=== PATIENT | male | born 1990 | race Asian ===

== ENCOUNTER 2022-06-16 07:05 | Outpatient (CLI) | payer OTHER ==
--- NOTE | 2022-06-16 13:45 | MRI Report ---
PROCEDURE: LUMBAR SPINE WO INDICATIONS: LOW BACK PAIN TECHNIQUE: Noncontrast sagittal T1 spin echo and T2 fast echo, sagittal STIR, axial T1 and T2 fast spin echo thr ough the lumbar spine. In cases with scoliosis, additional coronal T2 fast spin echo may be performe d. COMPARISON: None. FINDINGS: Image quality: Excellent. Alignment and Curvature: There is normal bony alignment. Bone Marrow: Marrow is of normal overall signal. No acute vertebral body compression fractures. Spinal Cord: Conus medullaris terminates at the L1-L2 level. Visualized cord demonstrates normal si gnal and size. Paraspinous Soft Tissues: No paravertebral masses. T12-L1: Normal in appearance. L1-L2: Mild disc bulge. No canal stenosis or foraminal stenosis. L2-L3: Mild disc bulge. No canal stenosis or foraminal stenosis. L3-L4: Normal in appearance. L4-L5: Mild facet hypertrophy. No canal stenosis or foraminal stenosis. L5-S1: Mild facet hypertrophy. No canal stenosis or foraminal stenosis. IMPRESSION: 1. No canal stenosis or foraminal stenosis. 2. Mild lower lumbar facet arthropathy. Reviewed by: Matty Nash MD on 06/16/2022 9:15 AM PDT Approved by: Matty Nash MD on 06/16/2022 9:15 AM PDT Station ID: [id number]
== END 2022-06-16 07:06 | disposition home or self-care (01) ==
LOC: DI 07:05
DX: M47.816 Spondylosis without myelopathy or radiculopathy, lumbar region (principal); M51.36 Other intervertebral disc degeneration, lumbar region; M47.817 Spondylosis without myelopathy or radiculopathy, lumbosacral region

== ENCOUNTER 2023-05-12 06:48 | Emergency (ER) | payer OTHER ==
--- NOTE | 2023-05-12 07:34 | ED Physician Documentation ---
PD HPI ABD PAIN - Stated complaint Stated Complaint: N/D/V/ABD PX/DEHYDRATION - Chief complaint Chief Complaint: Abd Pain - History obtained from History obtained from: Patient - Additional information Additional information: The patient comes to the emergency department chief complaint of abdominal pain, nausea, and watery diarrhea for the past 3 days. He states that it started after he ate some leftovers at his house. He states he is the only one who ate the leftovers and nobody he knows of is sick that he has been exposed to. He states the pain is sharp and episodic and periumbilical. He denies any vomiting though he has been nauseated. He has tried to eat a couple times but states it causes a sharp pain in his mid abdomen. He states he still burping up the taste of the food that he ate when this whole thing started. He states he has had watery diarrhea multiple times sometimes green or yellow-tinged. He states he has felt febrile, though he has not measured. No respiratory symptoms. He is otherwise fairly healthy except for some orthopedic issues. No new medications. He states he is not urinating much now and he feels dizzy when he stands up. No other complaints at this time. PD PAST MEDICAL HISTORY - Past Medical History Past Medical History: No Cardiovascular: None Respiratory: None Neuro: None Endocrine/Autoimmune: None GI: None : None HEENT: None Psych: None Musculoskeletal: None Derm: None - Past Surgical History Past Surgical History: No - Present Medications Home Medications: Ambulatory Orders Medication Instructions Recorded Confirmed Ondansetron Odt [Zofran] 4 mg TL Q6H PRN #10 tablet 05/12/23 - Allergies Allergies/Adverse Reactions: Allergies Allergy/AdvReac Type Severity Reaction Status Date / Time aspirin AdvReac Hives Verified 05/12/23 07:00 - Social History Does the pt smoke?: No Smoking Status: Never smoker Does the pt drink ETOH?: Yes Does the pt have substance abuse?: No - Immunizations Immunizations are current?: Yes PD ED PE NORMAL - Vitals Vital signs reviewed: Yes - General General: Alert and oriented X 3, No acute distress, Well developed/nourished - HEENT HEENT: Atraumatic, PERRL, EOMI, Moist mucous membranes - Neck Neck: Supple, no meningeal sign - Cardiac Cardiac: RRR, No murmur - Respiratory Respiratory: No respiratory distress, Clear bilaterally - Abdomen Abdomen: Soft, Non distended, Other (Mild tenderness over periumbilical area and very focally in the medial left upper quadrant. No rebound or guarding. No other tenderness.) - Derm Derm: Normal color, Warm and dry, No rash - Extremities Extremities: No deformity - Neuro Neuro: Alert and oriented X 3, Other (Grossly intact) - Psych Psych: Normal mood, Normal affect Results - Vitals Vitals: Vital Signs - 24 hr 05/12/23 05/12/23 06:56 07:15 Temperature 37.0 C Heart Rate 100 96 Respiratory 18 20 Rate Blood Pressure 122/86 H 116/83 H O2 Saturation 98 97 Oxygen O2 Source Room air - Labs Labs: Laboratory Tests 05/12/23 05/12/23 07:14 07:14 WBC 8.4 RBC 4.96 Hgb 16.0 Hct 48.1 MCV 97.0 H MCH 32.3 H MCHC 33.3 RDW 11.2 L Plt Count 206 MPV 11.7 H Neut # (Auto) 6.6 Lymph # (Auto) 0.9 L Nolan # (Auto) 0.7 Eos # (Auto) 0.0 Baso # (Auto) 0.0 Absolute Nucleated RBC 0.00 Nucleated RBC % 0.0 Sodium 132 L Potassium 3.8 Chloride 102 Carbon Dioxide 24 Anion Gap 6.0 BUN 15 Creatinine 1.0 Estimated GFR (MDRD) 88 L Glucose 97 Calcium 9.2 Total Bilirubin 0.8 AST 17 ALT 19 Alkaline Phosphatase 50 Total Protein 8.2 Albumin 4.7 Globulin 3.5 Albumin/Globulin Ratio 1.3 Lipase < 10 L PD Medical Decision Making - ED course Complexity details: reviewed results, re-evaluated patient, considered differential, d/w patient ED course: The patient was treated symptomatically with IV fluids, Zofran, and Toradol, and worked up with laboratory studies. The patient reported feeling better after symptomatic treatment, and his labs were unremarkable. I discussed with him that at this point in time, his abdominal exam is nonfocal, he has a normal white blood cell count, and his symptoms are very similar to many other cases we are seeing currently in gastroenteritis. At this point in time, I do not feel CT imaging is indicated. We have discussed the need for return should symptoms worsen. We have also discussed symptomatic management at home. I have given him a prescription for Zofran and a work note. We have discussed clear liquid diet. The patient is stable for discharge home. Departure - Departure Disposition: 01 Home, Self Care Clinical Impression: Gastroenteritis Condition: Stable Instructions: ED Gastroenteritis Viral Prescriptions: Ondansetron Odt [Zofran] 4 mg TL Q6H PRN #10 tablet PRN Reason: Nausea / Vomiting Comments: Your laboratory studies look good. There is no evidence of appendicitis or any other serious abdominal condition going on at this time. Most likely have one of the viral illnesses that are going around the community right now and causing similar symptoms and many people. In general, these illnesses last anywhere from several days to a week or so. For now, while you are feeling nauseated and continue to have the watery diarrhea, please take just clear liquids like water, sports drinks, jas ivelisse, or Pedialyte, and do not try to eat anything until your stomach is feeling a little better. When you do eat something, keep it to simple starches initially, such as saltine crackers or Ramen noodles. These are easy for your system to digest and do not have a high fiber content that will exacerbate your diarrhea. Please take the next couple of days off of work and get rest. Be sure you are getting plenty of water to drink. [place]. [place] prescription for some nausea medication has been electronically transmitted to the [facility] [place] Please pick this up and take it as needed to help settle your stomach. You may also get [id number] Imodium for your diarrhea. Charcoal tablets can be helpful too, though they should be taken at least 4 hours distant from any medication that you are taking, otherwise they will absorb the medication and the medication will not work. You can get charcoal tablets [id number] at stand-alone pharmacies or any health food store that sells herbal supplements. Forms: PCP List
[2023-05-12] MEDS: ONDANSETRON 4 MG/2 ML VIAL IVP STA (07:40)
[2023-05-12] MEDS: KETOROLAC 30 MG/ML VIAL IVP STA (07:40)
[2023-05-12] MEDS: SODIUM CHLORIDE 0.9% 1,000 ML IV STA (07:41)
[2023-05-12 07:43] LABS: BASOPHILS % (AUTO) 0.2 %; EOSINOPHILS % (AUTO) 0.1 %; HCT - HEMATOCRIT 48.1 % (42.0-52.0); LYMPHOCYTES # (AUTO) 0.9 10^3/uL (1.5-3.5); LYMPHOCYTES % (AUTO) 10.6 %; MEAN CORPUSCULAR HEMOGLOBIN 32.3 pg (27.0-31.0); MEAN CORPUSCULAR HGB CONC 33.3 g/dL (32.0-36.0); MEAN PLATELET VOLUME 11.7 fL (7.4-11.4); MONOCYTES # (AUTO) 0.7 10^3/uL (0.0-1.0); MONOCYTES % (AUTO) 8.9 %; NEUTROPHILS # (AUTO) 6.6 10^3/uL (1.5-6.6); NEUTROPHILS % (AUTO) 78.5 %; PLT - PLATELET COUNT 206 10^3/uL (130-450); RED BLOOD COUNT 4.96 10^6/uL (4.70-6.10); RED CELL DISTRIBUTION WIDTH 11.2 % (12.0-15.0); WHITE BLOOD COUNT 8.4 x10^3/uL (4.8-10.8)
[2023-05-12 07:47] LABS: ALBUMIN 4.7 g/dL (3.2-5.5); ALBUMIN/GLOBULIN RATIO 1.3 (1.0-2.2); ALKALINE PHOSPHATASE 50 IU/L (42-121); ALT ALANINE AMINOTRANSFERASE 19 IU/L (10-60); AST ASPARTATE AMINOTRANSFERASE 17 IU/L (10-42); BILIRUBIN,TOTAL 0.8 mg/dL (0.2-1.0); BUN - BLOOD UREA NITROGEN 15 mg/dL (6-20); CALCIUM 9.2 mg/dL (8.5-10.3); CARBON DIOXIDE - CO2 24 mmol/L (21-32); CHLORIDE 102 mmol/L (101-111); GFR - MDRD 88 (>89); GLUCOSE 97 mg/dL (74-104); POTASSIUM 3.8 mmol/L (3.5-4.5); SODIUM 132 mmol/L (135-145); TOTAL PROTEIN 8.2 g/dL (6.4-8.9)
[2023-05-12 07:50] LABS: LIPASE < 10 U/L (11-82)
[2023-05-12 08:24] LABS: B. PARAPERTUSSIS- RESP PCR PAN NOT DETECTED; B. PERTUSSIS- RESP PCR PANEL NOT DETECTED; C. PNEUMONIAE- RESP PCR PANEL NOT DETECTED; CORONAVIRUS 229E-RESP PCR NOT DETECTED; CORONAVIRUS HKU1-RESP PCR NOT DETECTED; CORONAVIRUS NL63-RESP PCR NOT DETECTED; CORONAVIRUS OC43-RESP PCR NOT DETECTED; HUMAN METAPNEUMOVIRUS NOT DETECTED; INFLUENZA A- RESP PCR PANEL NOT DETECTED; INFLUENZA B - RESP PCR PANEL NOT DETECTED; M. PNEUMONIAE- RESP PCR PANEL NOT DETECTED; PARAINFLUENZA VIRUS 1 NOT DETECTED; PARAINFLUENZA VIRUS 2 NOT DETECTED; PARAINFLUENZA VIRUS 3 NOT DETECTED; PARAINFLUENZA VIRUS 4 NOT DETECTED; RHINOVIRUS/ENTEROVIRUS NOT DETECTED; RSV- RESP PCR PANEL NOT DETECTED; SARS-CoV-2 -RESP PCR PANEL NOT DETECTED
[2023-05-12 08:38] VITALS: BP 108/77; O2SAT 95
== END 2023-05-12 08:33 | disposition home or self-care (01) ==
LOC: ED 06:48
DX: K52.9 Noninfective gastroenteritis and colitis, unspecified (principal)
CPT/HCPCS: 36415; 80053; 83690; 85025; 87633; 96374; 99283